=== PATIENT | female | born 2000 | race Two or more races ===

== ENCOUNTER 2023-12-02 20:14 | Emergency (ER) | payer OTHER ==
[~2023-12-02] VITALS: Ht 154.9 cm; Wt 63.5 kg
[2023-12-02] MEDS ORDERED: KETOROLAC TROMETHAMINE 60 MG VIAL IM ONE (21:30)
[2023-12-02 21:48] LABS: URINE APPEARANCE Clear; URINE BILIRRUBIN Negative (NEGATIVE); URINE BLOOD Negative; URINE COLOR Yellow; URINE GLUCOSE Negative (NEGATIVE); URINE LEUKOCYTE Negative; URINE NITRATE Negative; URINE PROTEIN Negative (NEGATIVE)
[2023-12-02 21:52] LABS: URINE BACTERIA 2508.4 uL (0.0-1933); URINE WBC 10.3 uL (0.0-23.2)
[2023-12-02 22:07] LABS: URINE RBC 1.7 uL (0.0-20.8)
[2023-12-02] MEDS ORDERED: MIRALAX510 GM PO (22:13)
[2023-12-02] MEDS ORDERED: LACTULOSE 20 G/30 ML BLIST.PACK PO ONE (22:15)
[2023-12-02] MEDS ORDERED: MAGNESIUM HYDROXIDE 400 MG/5 ML ML PO ONE (22:15)
[2023-12-02] MEDS ORDERED: MINERAL OIL 30 ML BLIST.PACK PO ONE (22:15)
== END 2023-12-02 22:24 | disposition home or self-care (01) ==
LOC: ER 20:15
PROVIDERS: General Practice
DX: K59.00 Constipation, unspecified (principal)